=== PATIENT | male | born 1935 | race Caucasian/White ===

== ENCOUNTER 2018-03-07 06:55 | Emergency (ER) | payer MEDICARE, OTHER ==
[2018-03-07 07:33] LABS: ADD MAN DIFF? NO
[2018-03-07 07:34] LABS: WHITE BLOOD COUNT 7.4 10^3/ul (4.8-10.8)
[2018-03-07 07:34] LABS: BASOPHIL # 0.1 10^3/ul (0.0-0.1); BASOPHILS % 0.7 % (0.0-2.0); EOSINOPHILS # 0.2 10^3/ul (0.0-0.5); HEMATOCRIT 36.5 % (42.0-52.0); HEMOGLOBIN 12.5 g/dl (14.0-18.0); LYMPHOCYTES # 1.5 10^3/ul (0.8-2.9); LYMPHOCYTES % 20.2 % (15.0-51.0); MEAN CORPUSCULAR HEMOGLOBIN 30.8 pg (29.0-33.0); MEAN CORPUSCULAR HGB CONC 34.2 g/dl (32.0-37.0); MEAN CORPUSCULAR VOLUME 89.9 fl (82.0-101.0); MEAN PLATELET VOLUME 9.9 fl (7.4-10.4); MONOCYTE # 0.5 10^3/ul (0.3-0.9); MONOCYTES % 7.1 % (0.0-11.0); NEUTROPHIL # 5.1 10^3/ul (1.6-7.5); NEUTROPHILS % 68.6 % (39.0-77.0); PLATELET COUNT 147 10^3/UL (140-415); RED BLOOD COUNT 4.06 10^6/ul (4.70-6.10); RED CELL DISTRIBUTION WIDTH 13.9 % (11.5-14.5)
[2018-03-07] MEDS: KETOROLAC 30 MG INJ IV (07:39)
[2018-03-07 07:40] LABS: ALANINE AMINOTRANSFERASE 22 IU/L (13-69); ALBUMIN 4.1 g/dl (3.3-4.9); ALBUMIN/GLOBULIN RATIO 1.28; ALKALINE PHOSPHATASE 88 IU/L (42-121); ANION GAP 13 (8-16); ASPARTATE AMINO TRANSFERASE 22 IU/L (15-46); BILIRUBIN,INDIRECT 0.5 mg/dl (0-1.1); BILIRUBIN,TOTAL 0.5 mg/dl (0.2-1.3); BLOOD UREA NITROGEN 27 mg/dl (7-20); CALCIUM 8.8 mg/dl (8.4-10.2); CARBON DIOXIDE 18 mmol/L (21-31); CHLORIDE 114 mmol/L (97-110); CREATININE 1.68 mg/dl (0.61-1.24); GLUCOSE 97 mg/dl (70-220); LIPASE 219 U/L (23-300); POTASSIUM 3.9 mmol/L (3.5-5.1); SODIUM 141 mmol/L (135-144); TOTAL PROTEIN 7.3 g/dl (6.1-8.1)
[2018-03-07 09:14] LABS: URINE BLOOD (Dip) POC Trace-lysed (NEGATIVE); URINE GLUCOSE (Dip) POC Negative (NEGATIVE); URINE KETONES (Dip) POC Negative (NEGATIVE); URINE LEUKOCYTE EST (Dip) POC 1+ (NEGATIVE); URINE NITRITE (Dip) POC Positive (NEGATIVE); URINE TOTAL PROTEIN POC Negative (NEGATIVE)
[2018-03-07 09:14] LABS: URINE PH (Dip) POC 5.5 (5.0-8.5)
[2018-03-07 09:19] LABS: URINE BLOOD (Dip) POC Trace-lysed (NEGATIVE); URINE GLUCOSE (Dip) POC Negative (NEGATIVE); URINE KETONES (Dip) POC Negative (NEGATIVE); URINE LEUKOCYTE EST (Dip) POC 1+ (NEGATIVE); URINE NITRITE (Dip) POC Positive (NEGATIVE); URINE TOTAL PROTEIN POC Negative (NEGATIVE)
[2018-03-07 09:19] LABS: URINE PH (Dip) POC 5.5 (5.0-8.5)
== END 2018-03-07 10:23 | disposition home or self-care (01) ==
LOC: E/R 06:55
DX: N39.0 Urinary tract infection, site not specified (principal); G47.00 Insomnia, unspecified; I10 Essential (primary) hypertension
CPT/HCPCS: 36415; 74176; 80053; 81003; 83690; 85025; 96374; 99285-25

== ENCOUNTER 2018-04-08 09:44 | Emergency (ER) | payer MEDICARE, OTHER | END 2018-04-08 11:35 | disposition home or self-care (01) | LOC: FTE 09:44 | DX: K59.00 Constipation, unspecified (principal); I10 Essential (primary) hypertension | CPT/HCPCS: 74018; 99283-25 ==

== ENCOUNTER 2018-04-11 17:17 | Emergency (ER) | payer MEDICARE, OTHER ==
[2018-04-11 18:33] LABS: ADD UMIC YES; UR ASCORBIC ACID NEGATIVE (NEGATIVE); UR BILIRUBIN (Dip) NEGATIVE (NEGATIVE); UR BLOOD (Dip) 1+ mg/dL (NEGATIVE); UR CLARITY SLIGHTLY CLOUDY (CLEAR); UR COLOR YELLOW (YELLOW); UR GLUCOSE (Dip) NEGATIVE (NEGATIVE); UR KETONES (Dip) NEGATIVE (NEGATIVE); UR LEUKOCYTE ESTERASE (Dip) 3+ Leu/ul (NEGATIVE); UR MUCUS FEW /HPF (NONE SEEN); UR NITRITE (Dip) NEGATIVE (NEGATIVE); UR RBC 3 /HPF (0-5); UR SPECIFIC GRAVITY (Dip) 1.018 (1.003-1.030); UR TOTAL PROTEIN (Dip) 1+ mg/dl (NEGATIVE); UR UROBILINOGEN (Dip) NEGATIVE (NEGATIVE); UR WBC 181 /HPF (0-5)
[2018-04-11] MEDS: CEPHALEXIN 500 MG CAP PO (19:01)
== END 2018-04-11 19:10 | disposition home or self-care (01) ==
LOC: FTE 17:17
DX: N30.00 Acute cystitis without hematuria (principal); I10 Essential (primary) hypertension
CPT/HCPCS: 81001; 87086; 93005; 99284-25

== ENCOUNTER 2018-05-21 06:40 | Emergency (ER) | payer MEDICARE, OTHER ==
[2018-05-21 07:39] LABS: ADD UMIC YES; UR ASCORBIC ACID NEGATIVE (NEGATIVE); UR BACTERIA FEW /HPF (NONE SEEN); UR BILIRUBIN (Dip) NEGATIVE (NEGATIVE); UR BLOOD (Dip) 1+ mg/dL (NEGATIVE); UR CLARITY SLIGHTLY CLOUDY (CLEAR); UR COLOR YELLOW (YELLOW); UR GLUCOSE (Dip) NEGATIVE (NEGATIVE); UR KETONES (Dip) NEGATIVE (NEGATIVE); UR LEUKOCYTE ESTERASE (Dip) 2+ Leu/ul (NEGATIVE); UR MUCUS FEW /HPF (NONE SEEN); UR NITRITE (Dip) POSITIVE (NEGATIVE); UR RBC 5 /HPF (0-5); UR SPECIFIC GRAVITY (Dip) 1.013 (1.003-1.030); UR TOTAL PROTEIN (Dip) NEGATIVE (NEGATIVE); UR UROBILINOGEN (Dip) NEGATIVE (NEGATIVE); UR WBC 83 /HPF (0-5)
== END 2018-05-21 08:12 | disposition home or self-care (01) ==
LOC: E/R 06:40
DX: N39.0 Urinary tract infection, site not specified (principal); I10 Essential (primary) hypertension
CPT/HCPCS: 81001; 99283

== ENCOUNTER 2018-06-07 22:40 | Inpatient (IN) | payer MEDICARE, MEDICAID, OTHER ==
[2018-06-07 23:53] LABS: ADD MAN DIFF? NO
[2018-06-07 23:54] LABS: WHITE BLOOD COUNT 10.3 10^3/ul (4.8-10.8)
[2018-06-07 23:54] LABS: BASOPHIL # 0.1 10^3/ul (0.0-0.1); BASOPHILS % 0.5 % (0.0-2.0); EOSINOPHILS # 0.2 10^3/ul (0.0-0.5); HEMATOCRIT 36.9 % (42.0-52.0); HEMOGLOBIN 12.6 g/dl (14.0-18.0); LYMPHOCYTES # 1.3 10^3/ul (0.8-2.9); LYMPHOCYTES % 12.3 % (15.0-51.0); MEAN CORPUSCULAR HEMOGLOBIN 30.9 pg (29.0-33.0); MEAN CORPUSCULAR HGB CONC 34.1 g/dl (32.0-37.0); MEAN CORPUSCULAR VOLUME 90.4 fl (82.0-101.0); MEAN PLATELET VOLUME 10.1 fl (7.4-10.4); MONOCYTE # 1.1 10^3/ul (0.3-0.9); MONOCYTES % 10.8 % (0.0-11.0); NEUTROPHIL # 7.6 10^3/ul (1.6-7.5); NEUTROPHILS % 73.7 % (39.0-77.0); PLATELET COUNT 159 10^3/UL (140-415); RED BLOOD COUNT 4.08 10^6/ul (4.70-6.10); RED CELL DISTRIBUTION WIDTH 13.6 % (11.5-14.5)
[2018-06-08] LABS: URINE PH (Dip) POC 5.5 (5.0-8.5)
[2018-06-08] LABS: URINE BLOOD (Dip) POC 2+ (NEGATIVE); URINE GLUCOSE (Dip) POC Negative (NEGATIVE); URINE KETONES (Dip) POC Negative (NEGATIVE); URINE LEUKOCYTE EST (Dip) POC 2+ (NEGATIVE); URINE NITRITE (Dip) POC Positive (NEGATIVE); URINE TOTAL PROTEIN POC 2+ (NEGATIVE)
[2018-06-08 00:22] LABS: B-TYPE NATRIURETIC PEPTIDE 5250 PG/ML (0-450)
[2018-06-08 00:26] LABS: TROPONIN-I 0.053 ng/ml (0.000-0.120)
[2018-06-08] MEDS: PIPER-TAZO 2.25 GM (PMX) 50 ML IVPB ×4 (00:37→20:48)
[2018-06-08 01:22] LABS: ALANINE AMINOTRANSFERASE 12 IU/L (13-69); ALBUMIN 3.8 g/dl (3.3-4.9); ALBUMIN/GLOBULIN RATIO 1.18; ALKALINE PHOSPHATASE 86 IU/L (42-121); ANION GAP 14 (5-13); ASPARTATE AMINO TRANSFERASE 20 IU/L (15-46); BILIRUBIN,INDIRECT 0.6 mg/dl (0-1.1); BILIRUBIN,TOTAL 0.6 mg/dl (0.2-1.3); BLOOD UREA NITROGEN 37 mg/dl (7-20); CALCIUM 8.9 mg/dl (8.4-10.2); CARBON DIOXIDE 16 mmol/L (21-31); CHLORIDE 113 mmol/L (97-110); CREATININE 2.78 mg/dl (0.61-1.24); GLUCOSE 124 mg/dl (70-220); LIPASE 103 U/L (23-300); POTASSIUM 3.9 mmol/L (3.5-5.1); SODIUM 143 mmol/L (135-144)
[2018-06-08] MEDS ORDERED: NACL 0.9% 3 ML SYG IV (02:00)
[2018-06-08] MEDS ORDERED: DOCUSATE SODIUM 100 MG CAP PO (02:00)
[2018-06-08] MEDS ORDERED: ONDANSETRON 4 MG INJ IV (02:00)
[2018-06-08] MEDS ORDERED: BISACODYL (EC) 5 MG TAB PO (02:00)
[2018-06-08 06:15] LABS: ADD MAN DIFF? NO
[2018-06-08 06:18] LABS: WHITE BLOOD COUNT 9.1 10^3/ul (4.8-10.8)
[2018-06-08 06:19] LABS: BASOPHIL # 0.1 10^3/ul (0.0-0.1); BASOPHILS % 0.7 % (0.0-2.0); EOSINOPHILS # 0.3 10^3/ul (0.0-0.5); EOSINOPHILS % 2.8 % (0.0-7.0); HEMATOCRIT 39.2 % (42.0-52.0); HEMOGLOBIN 12.9 g/dl (14.0-18.0); LYMPHOCYTES # 1.3 10^3/ul (0.8-2.9); LYMPHOCYTES % 14.1 % (15.0-51.0); MEAN CORPUSCULAR HEMOGLOBIN 30.7 pg (29.0-33.0); MEAN CORPUSCULAR HGB CONC 32.9 g/dl (32.0-37.0); MEAN CORPUSCULAR VOLUME 93.3 fl (82.0-101.0); MEAN PLATELET VOLUME 10.4 fl (7.4-10.4); MONOCYTE # 0.9 10^3/ul (0.3-0.9); MONOCYTES % 9.6 % (0.0-11.0); NEUTROPHIL # 6.5 10^3/ul (1.6-7.5); NEUTROPHILS % 71.9 % (39.0-77.0); PLATELET COUNT 185 10^3/UL (140-415); RED CELL DISTRIBUTION WIDTH 13.8 % (11.5-14.5)
[2018-06-08] MEDS: TAMSULOSIN (SR) 0.4 MG CAP PO (06:28)
[2018-06-08 06:44] LABS: ETHANOL < 10.0 mg/dl (0-0)
[2018-06-08 06:49] LABS: ALANINE AMINOTRANSFERASE 16 IU/L (13-69); ALBUMIN 3.9 g/dl (3.3-4.9); ALKALINE PHOSPHATASE 83 IU/L (42-121); ANION GAP 12 (5-13); ASPARTATE AMINO TRANSFERASE 20 IU/L (15-46); BILIRUBIN,INDIRECT 0.6 mg/dl (0-1.1); BILIRUBIN,TOTAL 0.6 mg/dl (0.2-1.3); BLOOD UREA NITROGEN 37 mg/dl (7-20); CALCIUM 8.9 mg/dl (8.4-10.2); CARBON DIOXIDE 19 mmol/L (21-31); CHLORIDE 111 mmol/L (97-110); CHOL/HDL RATIO 3.3 RATIO; CHOLESTEROL 173 mg/dl (100-200); CREATININE 2.64 mg/dl (0.61-1.24); GLUCOSE 108 mg/dl (70-220); HDL CHOLESTEROL 52 mg/dl (31-75); LDL CHOLESTEROL,CALCULATED 96 mg/dl; POTASSIUM 3.8 mmol/L (3.5-5.1); SODIUM 142 mmol/L (135-144); TOTAL PROTEIN 6.9 g/dl (6.1-8.1); TRIGLYCERIDES 126 mg/dl (0-149)
[2018-06-08 06:50] LABS: HEMOGLOBIN A1C 4.9 % (0-5.9)
[2018-06-08 07:03] LABS: CK-MB 2.38 ng/ml (0.0-2.4); TROPONIN-I 0.051 ng/ml (0.000-0.120)
[2018-06-08 07:04] LABS: CREATINE KINASE 79 IU/L (23-200)
[2018-06-08] MEDS: ASPIRIN 81 MG TAB PO (08:10)
[2018-06-08 11:56] LABS: CREATINE KINASE 66 IU/L (23-200)
[2018-06-08] MEDS: METOPROLOL 25 MG TAB PO ×2 (12:09→20:49)
[2018-06-08 12:10] LABS: CK INDEX 3.1; CK-MB 2.07 ng/ml (0.0-2.4); TROPONIN-I 0.032 ng/ml (0.000-0.120)
[2018-06-08 14:35] LABS: ADD UMIC YES; UR ASCORBIC ACID NEGATIVE (NEGATIVE); UR BILIRUBIN (Dip) NEGATIVE (NEGATIVE); UR BLOOD (Dip) 1+ mg/dL (NEGATIVE); UR CLARITY CLEAR (CLEAR); UR COLOR YELLOW (YELLOW); UR GLUCOSE (Dip) NEGATIVE (NEGATIVE); UR KETONES (Dip) NEGATIVE (NEGATIVE); UR LEUKOCYTE ESTERASE (Dip) 2+ Leu/ul (NEGATIVE); UR MUCUS FEW /HPF (NONE SEEN); UR NITRITE (Dip) POSITIVE (NEGATIVE); UR RBC 1 /HPF (0-5); UR SPECIFIC GRAVITY (Dip) 1.017 (1.003-1.030); UR TOTAL PROTEIN (Dip) 1+ mg/dl (NEGATIVE); UR UROBILINOGEN (Dip) NEGATIVE (NEGATIVE); UR WBC 54 /HPF (0-5)
[2018-06-08 14:52] LABS: CREATININE,URINE RANDOM 117.75 mg/dl (20-370); PROTEIN/CREAT RATIO 0.56 RATIO
[2018-06-08 14:57] LABS: SODIUM,URINE RANDOM 44 mmol/L (30-90)
[2018-06-08 14:57] LABS: CREATININE,URINE RANDOM 118.29 mg/dl (20-370)
[2018-06-09] MEDS: ACETAMINOPHEN 325 MG TAB PO (00:28)
[2018-06-09] MEDS: PIPER-TAZO 2.25 GM (PMX) 50 ML IVPB ×3 (05:14→21:41)
[2018-06-09 06:06] LABS: ADD MAN DIFF? NO
[2018-06-09 06:12] LABS: WHITE BLOOD COUNT 7.6 10^3/ul (4.8-10.8)
[2018-06-09 06:12] LABS: BASOPHIL # 0.1 10^3/ul (0.0-0.1); BASOPHILS % 0.8 % (0.0-2.0); EOSINOPHILS # 0.3 10^3/ul (0.0-0.5); EOSINOPHILS % 3.4 % (0.0-7.0); HEMATOCRIT 33.4 % (42.0-52.0); HEMOGLOBIN 11.2 g/dl (14.0-18.0); LYMPHOCYTES # 1.1 10^3/ul (0.8-2.9); LYMPHOCYTES % 14.7 % (15.0-51.0); MEAN CORPUSCULAR HEMOGLOBIN 30.8 pg (29.0-33.0); MEAN CORPUSCULAR HGB CONC 33.5 g/dl (32.0-37.0); MEAN CORPUSCULAR VOLUME 91.8 fl (82.0-101.0); MONOCYTE # 0.7 10^3/ul (0.3-0.9); MONOCYTES % 8.6 % (0.0-11.0); NEUTROPHIL # 5.4 10^3/ul (1.6-7.5); NEUTROPHILS % 71.7 % (39.0-77.0); PLATELET COUNT 175 10^3/UL (140-415); RED BLOOD COUNT 3.64 10^6/ul (4.70-6.10); RED CELL DISTRIBUTION WIDTH 13.9 % (11.5-14.5)
[2018-06-09 07:02] LABS: ANION GAP 9 (5-13); BLOOD UREA NITROGEN 38 mg/dl (7-20); CALCIUM 8.4 mg/dl (8.4-10.2); CARBON DIOXIDE 19 mmol/L (21-31); CHLORIDE 113 mmol/L (97-110); CREATININE 2.39 mg/dl (0.61-1.24); GLUCOSE 99 mg/dl (70-220); MAGNESIUM 2.2 mg/dl (1.7-2.5); PHOSPHORUS 3.9 mg/dl (2.5-4.9); POTASSIUM 4.1 mmol/L (3.5-5.1); SODIUM 141 mmol/L (135-144)
[2018-06-09 07:47] LABS: PROSTATE SPECIFIC ANTIGEN 8.5 ng/ml (0.0-4.0)
[2018-06-09] MEDS: METOPROLOL 25 MG TAB PO ×2 (08:34→21:41)
[2018-06-09] MEDS: ASPIRIN 81 MG TAB PO (08:34)
[2018-06-09] MEDS: FINASTERIDE 5 MG TAB PO (08:34)
[2018-06-09] MEDS: TAMSULOSIN (SR) 0.4 MG CAP PO ×2 (12:06→21:41)
[2018-06-09 15:32] LABS: CREATININE, RANDOM URINE 120 mg/dL (20-320); MICROALBUMIN/CREATININE RATIO 50 (<30)
[2018-06-09 20:54] LABS: PSA, FREE 2.7 ng/mL
[2018-06-10 06:03] LABS: ADD MAN DIFF? NO
[2018-06-10 06:06] LABS: WHITE BLOOD COUNT 7.2 10^3/ul (4.8-10.8)
[2018-06-10 06:06] LABS: BASOPHIL # 0.1 10^3/ul (0.0-0.1); BASOPHILS % 0.8 % (0.0-2.0); EOSINOPHILS # 0.3 10^3/ul (0.0-0.5); EOSINOPHILS % 3.9 % (0.0-7.0); HEMATOCRIT 34.7 % (42.0-52.0); HEMOGLOBIN 11.5 g/dl (14.0-18.0); LYMPHOCYTES # 1.3 10^3/ul (0.8-2.9); LYMPHOCYTES % 18.5 % (15.0-51.0); MEAN CORPUSCULAR HGB CONC 33.1 g/dl (32.0-37.0); MEAN CORPUSCULAR VOLUME 93.5 fl (82.0-101.0); MEAN PLATELET VOLUME 10.5 fl (7.4-10.4); MONOCYTE # 0.5 10^3/ul (0.3-0.9); MONOCYTES % 7.1 % (0.0-11.0); NEUTROPHILS % 69.1 % (39.0-77.0); PLATELET COUNT 205 10^3/UL (140-415); RED BLOOD COUNT 3.71 10^6/ul (4.70-6.10); RED CELL DISTRIBUTION WIDTH 13.9 % (11.5-14.5)
[2018-06-10] MEDS: PIPER-TAZO 2.25 GM (PMX) 50 ML IVPB ×3 (06:14→22:08)
[2018-06-10 06:53] LABS: ANION GAP 11 (5-13); BLOOD UREA NITROGEN 39 mg/dl (7-20); CALCIUM 8.7 mg/dl (8.4-10.2); CARBON DIOXIDE 18 mmol/L (21-31); CHLORIDE 115 mmol/L (97-110); CREATININE 2.38 mg/dl (0.61-1.24); GLUCOSE 98 mg/dl (70-220); MAGNESIUM 2.2 mg/dl (1.7-2.5); POTASSIUM 4.5 mmol/L (3.5-5.1); SODIUM 144 mmol/L (135-144)
[2018-06-10] MEDS: ASPIRIN 81 MG TAB PO (08:36)
[2018-06-10] MEDS: FINASTERIDE 5 MG TAB PO (08:37)
[2018-06-10] MEDS: METOPROLOL 25 MG TAB PO ×2 (08:37→20:39)
[2018-06-10] MEDS: TAMSULOSIN (SR) 0.4 MG CAP PO ×2 (08:37→20:41)
[2018-06-11 00:50] LABS: ADD MAN DIFF? NO
[2018-06-11 00:52] LABS: BASOPHILS % 0.6 % (0.0-2.0); EOSINOPHILS # 0.2 10^3/ul (0.0-0.5); HEMATOCRIT 32.4 % (42.0-52.0); HEMOGLOBIN 10.7 g/dl (14.0-18.0); LYMPHOCYTES # 1.1 10^3/ul (0.8-2.9); LYMPHOCYTES % 15.5 % (15.0-51.0); MEAN CORPUSCULAR HEMOGLOBIN 30.7 pg (29.0-33.0); MEAN CORPUSCULAR VOLUME 92.8 fl (82.0-101.0); MEAN PLATELET VOLUME 10.1 fl (7.4-10.4); MONOCYTE # 0.5 10^3/ul (0.3-0.9); MONOCYTES % 7.4 % (0.0-11.0); NEUTROPHIL # 5.1 10^3/ul (1.6-7.5); NEUTROPHILS % 72.9 % (39.0-77.0); PLATELET COUNT 206 10^3/UL (140-415); RED BLOOD COUNT 3.49 10^6/ul (4.70-6.10); RED CELL DISTRIBUTION WIDTH 13.9 % (11.5-14.5)
[2018-06-11] MEDS: ZOLPIDEM 5 MG TAB PO (04:45)
[2018-06-11 06:06] LABS: ADD MAN DIFF? NO
[2018-06-11 06:08] LABS: WHITE BLOOD COUNT 7.4 10^3/ul (4.8-10.8)
[2018-06-11 06:08] LABS: BASOPHIL # 0.1 10^3/ul (0.0-0.1); BASOPHILS % 0.7 % (0.0-2.0); EOSINOPHILS # 0.3 10^3/ul (0.0-0.5); EOSINOPHILS % 3.4 % (0.0-7.0); HEMATOCRIT 31.6 % (42.0-52.0); HEMOGLOBIN 10.7 g/dl (14.0-18.0); LYMPHOCYTES # 1.1 10^3/ul (0.8-2.9); LYMPHOCYTES % 14.7 % (15.0-51.0); MEAN CORPUSCULAR HEMOGLOBIN 31.2 pg (29.0-33.0); MEAN CORPUSCULAR HGB CONC 33.9 g/dl (32.0-37.0); MEAN CORPUSCULAR VOLUME 92.1 fl (82.0-101.0); MEAN PLATELET VOLUME 10.1 fl (7.4-10.4); MONOCYTE # 0.6 10^3/ul (0.3-0.9); MONOCYTES % 8.2 % (0.0-11.0); NEUTROPHIL # 5.4 10^3/ul (1.6-7.5); NEUTROPHILS % 72.6 % (39.0-77.0); PLATELET COUNT 193 10^3/UL (140-415); RED BLOOD COUNT 3.43 10^6/ul (4.70-6.10); RED CELL DISTRIBUTION WIDTH 13.6 % (11.5-14.5)
[2018-06-11] MEDS: PIPER-TAZO 2.25 GM (PMX) 50 ML IVPB (06:11)
[2018-06-11 06:21] LABS: ANION GAP 7 (5-13); BLOOD UREA NITROGEN 38 mg/dl (7-20); CALCIUM 8.3 mg/dl (8.4-10.2); CARBON DIOXIDE 18 mmol/L (21-31); CHLORIDE 118 mmol/L (97-110); CREATININE 1.97 mg/dl (0.61-1.24); GLUCOSE 87 mg/dl (70-220); POTASSIUM 4.2 mmol/L (3.5-5.1); SODIUM 143 mmol/L (135-144)
[2018-06-11 06:32] LABS: PHOSPHORUS 3.6 mg/dl (2.5-4.9)
[2018-06-11] MEDS: TAMSULOSIN (SR) 0.4 MG CAP PO (08:29)
[2018-06-11] MEDS: ASPIRIN 81 MG TAB PO (08:29)
[2018-06-11] MEDS: METOPROLOL 25 MG TAB PO (08:29)
[2018-06-11] MEDS: FINASTERIDE 5 MG TAB PO (08:29)
[2018-06-11] MEDS: AMLODIPINE 5 MG TAB PO (10:50)
== END 2018-06-11 10:53 | disposition home or self-care (01) | DRG 309 ==
LOC: 6WM 06-11 05:16 → E/R 22:40 → 6WM 06-08 01:31
DX: I48.0 Paroxysmal atrial fibrillation (principal); N17.9 Acute kidney failure, unspecified; N39.0 Urinary tract infection, site not specified; N18.4 Chronic kidney disease, stage 4 (severe); Z87.440 Personal history of urinary (tract) infections; N40.0 Benign prostatic hyperplasia without lower urinary tract symptoms; I12.9 Hypertensive chronic kidney disease with stage 1 through stage 4 chronic kidney disease, or unspecified chronic kidney disease; R79.89 Other specified abnormal findings of blood chemistry; E83.89 Other disorders of mineral metabolism; F10.10 Alcohol abuse, uncomplicated; D64.9 Anemia, unspecified; I71.4 Abdominal aortic aneurysm, without rupture; Z87.891 Personal history of nicotine dependence; R35.1 Nocturia; R31.9 Hematuria, unspecified
CPT/HCPCS: 36415; 71045; 74176; 76775; 80048; 80053; 80061; 80307; 81001; 81003; 82043; 82550; 82553; 82570; 83036; 83690; 83735; 83880; 84100; 84153; 84154; 84155; 84300; 84443; 84484; 85025; 87086; 93005; 93306; 96374; 99285-25

== ENCOUNTER 2018-07-14 15:13 | Emergency (ER) | payer MEDICARE, MEDICAID ==
[2018-07-14 17:24] LABS: ADD MAN DIFF? NO
[2018-07-14 17:27] LABS: BASOPHILS % 0.5 % (0.0-2.0); EOSINOPHILS # 0.2 10^3/ul (0.0-0.5); EOSINOPHILS % 2.4 % (0.0-7.0); HEMOGLOBIN 11.9 g/dl (14.0-18.0); LYMPHOCYTES # 0.9 10^3/ul (0.8-2.9); LYMPHOCYTES % 11.4 % (15.0-51.0); MEAN CORPUSCULAR HEMOGLOBIN 30.5 pg (29.0-33.0); MEAN CORPUSCULAR HGB CONC 33.1 g/dl (32.0-37.0); MEAN CORPUSCULAR VOLUME 92.3 fl (82.0-101.0); MEAN PLATELET VOLUME 9.7 fl (7.4-10.4); MONOCYTE # 0.7 10^3/ul (0.3-0.9); MONOCYTES % 7.9 % (0.0-11.0); NEUTROPHIL # 6.4 10^3/ul (1.6-7.5); NEUTROPHILS % 77.3 % (39.0-77.0); PLATELET COUNT 179 10^3/UL (140-415); RED CELL DISTRIBUTION WIDTH 13.8 % (11.5-14.5)
[2018-07-14 17:27] LABS: WHITE BLOOD COUNT 8.3 10^3/ul (4.8-10.8)
[2018-07-14 17:59] LABS: ANION GAP 10 (5-13); BLOOD UREA NITROGEN 39 mg/dl (7-20); CALCIUM 8.9 mg/dl (8.4-10.2); CARBON DIOXIDE 20 mmol/L (21-31); CHLORIDE 114 mmol/L (97-110); CREATININE 1.89 mg/dl (0.61-1.24); GLUCOSE 105 mg/dl (70-220); POTASSIUM 4.5 mmol/L (3.5-5.1); SODIUM 144 mmol/L (135-144)
[2018-07-14 18:11] LABS: TROPONIN-I 0.015 ng/ml (0.000-0.120)
[2018-07-14 18:21] LABS: ADD UMIC YES; UR ASCORBIC ACID NEGATIVE (NEGATIVE); UR BACTERIA FEW /HPF (NONE SEEN); UR BILIRUBIN (Dip) NEGATIVE (NEGATIVE); UR BLOOD (Dip) 1+ mg/dL (NEGATIVE); UR CLARITY SLIGHTLY CLOUDY (CLEAR); UR COLOR YELLOW (YELLOW); UR GLUCOSE (Dip) NEGATIVE (NEGATIVE); UR KETONES (Dip) NEGATIVE (NEGATIVE); UR LEUKOCYTE ESTERASE (Dip) 3+ Leu/ul (NEGATIVE); UR NITRITE (Dip) POSITIVE (NEGATIVE); UR RBC 3 /HPF (0-5); UR SPECIFIC GRAVITY (Dip) 1.014 (1.003-1.030); UR TOTAL PROTEIN (Dip) 1+ mg/dl (NEGATIVE); UR UROBILINOGEN (Dip) NEGATIVE (NEGATIVE); UR WBC 165 /HPF (0-5)
[2018-07-14] MEDS: CEFTRIAXONE 1 GM/50 ML (PMX) 50 ML IVPB (19:37)
== END 2018-07-14 21:47 | disposition home or self-care (01) ==
LOC: E/R 15:13
DX: M54.5 Low back pain (principal); N39.0 Urinary tract infection, site not specified; N12 Tubulo-interstitial nephritis, not specified as acute or chronic; N40.1 Benign prostatic hyperplasia with lower urinary tract symptoms; R33.8 Other retention of urine; N32.0 Bladder-neck obstruction; I10 Essential (primary) hypertension; Z79.82 Long term (current) use of aspirin
CPT/HCPCS: 72100; 74176; 80048; 81001; 84484; 85025; 87086; 93005; 96374; 99285-25

== ENCOUNTER 2018-07-22 14:21 | Emergency (ER) | payer SELFPAY, MEDICAID, MEDICARE | END 2018-07-22 14:29 | disposition left against medical advice (07) | LOC: E/R 14:21 | DX: Z53.21 Procedure and treatment not carried out due to patient leaving prior to being seen by health care provider (principal) ==

== ENCOUNTER 2018-07-26 05:20 | Emergency (ER) | payer MEDICARE, OTHER ==
[2018-07-26 06:26] LABS: URINE PH (Dip) POC 5.5 (5.0-8.5)
[2018-07-26 06:26] LABS: URINE BLOOD (Dip) POC Trace-intact (NEGATIVE); URINE GLUCOSE (Dip) POC Negative (NEGATIVE); URINE KETONES (Dip) POC Negative (NEGATIVE); URINE LEUKOCYTE EST (Dip) POC 2+ (NEGATIVE); URINE NITRITE (Dip) POC Positive (NEGATIVE); URINE TOTAL PROTEIN POC 1+ (NEGATIVE)
== END 2018-07-26 07:01 | disposition home or self-care (01) ==
LOC: E/R 07:01
DX: N40.0 Benign prostatic hyperplasia without lower urinary tract symptoms (principal); I10 Essential (primary) hypertension; M79.671 Pain in right foot
CPT/HCPCS: 81003; 99283

== ENCOUNTER 2018-09-28 16:34 | Emergency (ER) | payer MEDICARE, MEDICAID, OTHER | END 2018-09-28 20:42 | disposition home or self-care (01) | LOC: E/R 20:42 | DX: G62.9 Polyneuropathy, unspecified (principal); I10 Essential (primary) hypertension; Z87.891 Personal history of nicotine dependence | CPT/HCPCS: 99282 ==

== ENCOUNTER 2018-10-16 10:25 | Inpatient (IN) | payer OTHER, MEDICAID, MEDICARE ==
[2018-10-16] MEDS ORDERED: DILTIAZEM 25 MG INJ (11:33)
[2018-10-16 11:53] LABS: ADD MAN DIFF? NO
[2018-10-16] MEDS: DILTIAZEM 25 MG INJ IV ×4 (12:01→18:16)
[2018-10-16 12:08] LABS: BASOPHIL # 0.1 10^3/ul (0.0-0.1); BASOPHILS % 0.8 % (0.0-2.0); EOSINOPHILS # 0.1 10^3/ul (0.0-0.5); EOSINOPHILS % 0.8 % (0.0-7.0); HEMATOCRIT 41.6 % (42.0-52.0); HEMOGLOBIN 13.6 g/dl (14.0-18.0); LYMPHOCYTES # 0.7 10^3/ul (0.8-2.9); LYMPHOCYTES % 9.6 % (15.0-51.0); MEAN CORPUSCULAR HGB CONC 32.7 g/dl (32.0-37.0); MEAN CORPUSCULAR VOLUME 91.6 fl (82.0-101.0); MEAN PLATELET VOLUME 10.8 fl (7.4-10.4); MONOCYTE # 0.9 10^3/ul (0.3-0.9); NEUTROPHIL # 5.6 10^3/ul (1.6-7.5); NEUTROPHILS % 76.1 % (39.0-77.0); PLATELET COUNT 122 10^3/UL (140-415); RED BLOOD COUNT 4.54 10^6/ul (4.70-6.10); RED CELL DISTRIBUTION WIDTH 14.5 % (11.5-14.5)
[2018-10-16 12:08] LABS: WHITE BLOOD COUNT 7.4 10^3/ul (4.8-10.8)
[2018-10-16 12:21] LABS: INR 0.95; PROTIME 12.8 Sec (11.9-14.9)
[2018-10-16 12:22] LABS: PARTIAL THROMBOPLASTIN TIME 34.1 Sec (23.0-35.0)
[2018-10-16 12:25] LABS: ANION GAP 12 (5-13); BLOOD UREA NITROGEN 31 mg/dl (7-20); CALCIUM 9.3 mg/dl (8.4-10.2); CARBON DIOXIDE 18 mmol/L (21-31); CHLORIDE 112 mmol/L (97-110); CREATININE 2.83 mg/dl (0.61-1.24); GLUCOSE 116 mg/dl (70-220); POTASSIUM 4.3 mmol/L (3.5-5.1); SODIUM 142 mmol/L (135-144)
[2018-10-16 12:33] LABS: B-TYPE NATRIURETIC PEPTIDE 600 PG/ML (0-450)
[2018-10-16 12:38] LABS: TROPONIN-I < 0.012 ng/ml (0.000-0.120)
[2018-10-16 13:16] LABS: URINE BLOOD (Dip) POC 3+ (NEGATIVE); URINE GLUCOSE (Dip) POC Negative (NEGATIVE); URINE KETONES (Dip) POC Trace (NEGATIVE); URINE LEUKOCYTE EST (Dip) POC 3+ (NEGATIVE); URINE NITRITE (Dip) POC Positive (NEGATIVE); URINE TOTAL PROTEIN POC 2+ (NEGATIVE)
[2018-10-16] MEDS: SOD CHLORIDE 0.9% 500 ML IV (13:20)
[2018-10-16] MEDS ORDERED: ACETAMINOPHEN 325 MG TAB PO (14:00)
[2018-10-16] MEDS ORDERED: ONDANSETRON 4 MG INJ IV (14:00)
[2018-10-16] MEDS ORDERED: NACL 0.9% 3 ML SYG IV (14:00)
[2018-10-16] MEDS: CEFTRIAXONE 1 GM/50 ML (PMX) 50 ML IVPB (14:14)
[2018-10-16] MEDS: SOD CHLORIDE 0.9% 1,000 ML IV (17:08)
[2018-10-16] MEDS ORDERED: DILTIAZEM 25 MG INJ IV (17:30)
[2018-10-16 17:58] LABS: CREATINE KINASE 60 IU/L (23-200)
[2018-10-16 18:10] LABS: CK INDEX 1.8; CK-MB 1.06 ng/ml (0.0-2.4); TROPONIN-I 0.025 ng/ml (0.000-0.120)
[2018-10-16 18:17] LABS: ADD UMIC YES; UR ASCORBIC ACID 20 mg/dL (NEGATIVE); UR BACTERIA FEW /HPF (NONE SEEN); UR BILIRUBIN (Dip) NEGATIVE (NEGATIVE); UR BLOOD (Dip) 3+ mg/dL (NEGATIVE); UR CLARITY CLOUDY (CLEAR); UR COLOR AMBER (YELLOW); UR GLUCOSE (Dip) NEGATIVE (NEGATIVE); UR KETONES (Dip) NEGATIVE (NEGATIVE); UR LEUKOCYTE ESTERASE (Dip) TRACE Leu/ul (NEGATIVE); UR MUCUS FEW /HPF (NONE SEEN); UR NITRITE (Dip) POSITIVE (NEGATIVE); UR RBC > 182 /HPF (0-5); UR SPECIFIC GRAVITY (Dip) 1.013 (1.003-1.030); UR TOTAL PROTEIN (Dip) 2+ mg/dl (NEGATIVE); UR UROBILINOGEN (Dip) NEGATIVE (NEGATIVE); UR WBC 182 /HPF (0-5)
[2018-10-16] MEDS: DIGOXIN 500 MCG INJ IV (18:17)
[2018-10-16] MEDS: METOPROLOL 25 MG TAB PO ×2 (18:18→21:00)
[2018-10-16] MEDS: TAMSULOSIN (SR) 0.4 MG CAP PO (20:13)
[2018-10-16 21:04] LABS: SODIUM,URINE RANDOM 91 mmol/L (30-90)
[2018-10-16 23:51] LABS: CREATINE KINASE 65 IU/L (23-200)
[2018-10-17 00:04] LABS: CK INDEX 2.1; CK-MB 1.38 ng/ml (0.0-2.4); TROPONIN-I 0.029 ng/ml (0.000-0.120)
[2018-10-17 06:35] LABS: ADD MAN DIFF? NO
[2018-10-17 06:40] LABS: BASOPHIL # 0.1 10^3/ul (0.0-0.1); BASOPHILS % 0.8 % (0.0-2.0); EOSINOPHILS # 0.1 10^3/ul (0.0-0.5); EOSINOPHILS % 1.2 % (0.0-7.0); HEMATOCRIT 36.8 % (42.0-52.0); HEMOGLOBIN 12.1 g/dl (14.0-18.0); LYMPHOCYTES # 0.8 10^3/ul (0.8-2.9); LYMPHOCYTES % 13.4 % (15.0-51.0); MEAN CORPUSCULAR HEMOGLOBIN 30.1 pg (29.0-33.0); MEAN CORPUSCULAR HGB CONC 32.9 g/dl (32.0-37.0); MEAN CORPUSCULAR VOLUME 91.5 fl (82.0-101.0); MEAN PLATELET VOLUME 10.6 fl (7.4-10.4); MONOCYTE # 0.5 10^3/ul (0.3-0.9); MONOCYTES % 8.6 % (0.0-11.0); NEUTROPHIL # 4.6 10^3/ul (1.6-7.5); NEUTROPHILS % 75.7 % (39.0-77.0); PLATELET COUNT 123 10^3/UL (140-415); RED BLOOD COUNT 4.02 10^6/ul (4.70-6.10); RED CELL DISTRIBUTION WIDTH 14.4 % (11.5-14.5)
[2018-10-17 07:08] LABS: PHOSPHORUS 3.2 mg/dl (2.5-4.9)
[2018-10-17 07:20] LABS: ALANINE AMINOTRANSFERASE 13 IU/L (13-69); ALBUMIN 3.5 g/dl (3.3-4.9); ALBUMIN/GLOBULIN RATIO 1.16; ALKALINE PHOSPHATASE 62 IU/L (42-121); ANION GAP 10 (5-13); ASPARTATE AMINO TRANSFERASE 21 IU/L (15-46); BILIRUBIN,INDIRECT 0.3 mg/dl (0-1.1); BILIRUBIN,TOTAL 0.3 mg/dl (0.2-1.3); BLOOD UREA NITROGEN 30 mg/dl (7-20); CALCIUM 8.4 mg/dl (8.4-10.2); CARBON DIOXIDE 20 mmol/L (21-31); CHLORIDE 112 mmol/L (97-110); CREATININE 1.94 mg/dl (0.61-1.24); GLUCOSE 91 mg/dl (70-220); MAGNESIUM 1.8 mg/dl (1.7-2.5); POTASSIUM 3.9 mmol/L (3.5-5.1); SODIUM 142 mmol/L (135-144); TOTAL PROTEIN 6.5 g/dl (6.1-8.1)
[2018-10-17] MEDS: METOPROLOL 25 MG TAB PO ×2 (08:23→13:20)
[2018-10-17 08:50] LABS: HEMOGLOBIN A1C 5.1 % (0-5.9)
[2018-10-17 11:25] LABS: ADD UMIC YES; UR ASCORBIC ACID NEGATIVE (NEGATIVE); UR BACTERIA FEW /HPF (NONE SEEN); UR BILIRUBIN (Dip) NEGATIVE (NEGATIVE); UR BLOOD (Dip) 3+ mg/dL (NEGATIVE); UR CLARITY CLOUDY (CLEAR); UR COLOR RED (YELLOW); UR GLUCOSE (Dip) NEGATIVE (NEGATIVE); UR KETONES (Dip) NEGATIVE (NEGATIVE); UR LEUKOCYTE ESTERASE (Dip) 2+ Leu/ul (NEGATIVE); UR MUCUS FEW /HPF (NONE SEEN); UR NITRITE (Dip) NEGATIVE (NEGATIVE); UR RBC > 182 /HPF (0-5); UR SPECIFIC GRAVITY (Dip) 1.014 (1.003-1.030); UR TOTAL PROTEIN (Dip) 2+ mg/dl (NEGATIVE); UR UROBILINOGEN (Dip) NEGATIVE (NEGATIVE); UR WBC > 182 /HPF (0-5)
[2018-10-17] MEDS: CEFTRIAXONE 1 GM/50 ML (PMX) 50 ML IVPB (15:57)
[2018-10-17] MEDS: DILTIAZEM (CD) 120 MG CAP PO (16:00)
[2018-10-17] MEDS: SOD CHLORIDE 0.9% 1,000 ML IV ×2 (16:30→20:49)
[2018-10-17] MEDS: TAMSULOSIN (SR) 0.4 MG CAP PO (20:34)
[2018-10-17] MEDS: HEPARIN 5,000 UNIT/1 ML VIAL SC (20:36)
[2018-10-17] MEDS: hydrALAzine 20 MG INJ IV (23:53)
[2018-10-18] MEDS: hydrALAzine 20 MG INJ IV (05:31)
[2018-10-18 07:25] LABS: ADD MAN DIFF? NO
[2018-10-18 07:32] LABS: ABNORMAL IP MESSAGE 1; BASOPHILS % 0.2 % (0.0-2.0); HEMATOCRIT 34.1 % (42.0-52.0); HEMOGLOBIN 11.5 g/dl (14.0-18.0); LYMPHOCYTES # 0.5 10^3/ul (0.8-2.9); LYMPHOCYTES % 9.3 % (15.0-51.0); MEAN CORPUSCULAR HEMOGLOBIN 30.5 pg (29.0-33.0); MEAN CORPUSCULAR HGB CONC 33.7 g/dl (32.0-37.0); MEAN CORPUSCULAR VOLUME 90.5 fl (82.0-101.0); MEAN PLATELET VOLUME 10.5 fl (7.4-10.4); MONOCYTE # 0.6 10^3/ul (0.3-0.9); MONOCYTES % 10.4 % (0.0-11.0); NEUTROPHIL # 4.4 10^3/ul (1.6-7.5); NEUTROPHILS % 79.7 % (39.0-77.0); PLATELET COUNT 114 10^3/UL (140-415); POSITIVE DIFF @See below; RED BLOOD COUNT 3.77 10^6/ul (4.70-6.10)
[2018-10-18 07:32] LABS: WHITE BLOOD COUNT 5.5 10^3/ul (4.8-10.8)
[2018-10-18 07:59] LABS: ANION GAP 13 (5-13); BLOOD UREA NITROGEN 26 mg/dl (7-20); CALCIUM 8.6 mg/dl (8.4-10.2); CARBON DIOXIDE 17 mmol/L (21-31); CHLORIDE 111 mmol/L (97-110); CREATININE 1.89 mg/dl (0.61-1.24); GLUCOSE 100 mg/dl (70-220); MAGNESIUM 1.6 mg/dl (1.7-2.5); POTASSIUM 3.6 mmol/L (3.5-5.1); SODIUM 141 mmol/L (135-144)
[2018-10-18] MEDS ORDERED: MAGNESIUM SULFATE 4 GM/100 ML 100 ML IVPB (08:30)
[2018-10-18] MEDS: MAG SULFATE 2GM IN 50 ML IVPB ×2 (10:08→12:17)
[2018-10-18] MEDS: APIXABAN 5 MG TABLET PO ×2 (10:09→21:16)
[2018-10-18] MEDS: DILTIAZEM (CD) 120 MG CAP PO ×2 (10:10→21:20)
[2018-10-18] MEDS: HEPARIN 5,000 UNIT/1 ML VIAL SC ×2 (10:21→21:30)
[2018-10-18] MEDS: DRONEDARONE HYDROCHLORIDE 400 MG TAB PO ×2 (12:10→17:48)
[2018-10-18] MEDS: CEFTRIAXONE 1 GM/50 ML (PMX) 50 ML IVPB (14:46)
[2018-10-18] MEDS: PIPER-TAZO 2.25 GM (PMX) 50 ML IVPB ×2 (16:04→21:22)
[2018-10-18 16:46] LABS: CREATININE, RANDOM URINE 95 mg/dL (20-320); MICROALBUMIN 36.4 mg/dL; MICROALBUMIN/CREATININE RATIO 383 (<30)
[2018-10-18] MEDS: TAMSULOSIN (SR) 0.4 MG CAP PO (21:20)
[2018-10-19] MEDS: PIPER-TAZO 2.25 GM (PMX) 50 ML IVPB ×2 (05:37→13:48)
[2018-10-19] MEDS: SOD CHLORIDE 0.9% 1,000 ML IV (05:40)
[2018-10-19] MEDS: APIXABAN 5 MG TABLET PO ×2 (08:43→21:19)
[2018-10-19] MEDS: DILTIAZEM (CD) 120 MG CAP PO ×2 (08:43→21:20)
[2018-10-19] MEDS: DRONEDARONE HYDROCHLORIDE 400 MG TAB PO ×2 (08:44→18:03)
[2018-10-19 08:49] LABS: ADD MAN DIFF? NO
[2018-10-19 09:04] LABS: BASOPHILS % 0.6 % (0.0-2.0); EOSINOPHILS # 0.1 10^3/ul (0.0-0.5); EOSINOPHILS % 1.6 % (0.0-7.0); HEMATOCRIT 31.4 % (42.0-52.0); HEMOGLOBIN 10.5 g/dl (14.0-18.0); LYMPHOCYTES # 0.9 10^3/ul (0.8-2.9); LYMPHOCYTES % 17.3 % (15.0-51.0); MEAN CORPUSCULAR HEMOGLOBIN 30.3 pg (29.0-33.0); MEAN CORPUSCULAR HGB CONC 33.4 g/dl (32.0-37.0); MEAN CORPUSCULAR VOLUME 90.8 fl (82.0-101.0); MEAN PLATELET VOLUME 10.9 fl (7.4-10.4); MONOCYTE # 0.5 10^3/ul (0.3-0.9); MONOCYTES % 9.6 % (0.0-11.0); NEUTROPHIL # 3.5 10^3/ul (1.6-7.5); NEUTROPHILS % 70.3 % (39.0-77.0); PLATELET COUNT 111 10^3/UL (140-415); RED BLOOD COUNT 3.46 10^6/ul (4.70-6.10); RED CELL DISTRIBUTION WIDTH 14.6 % (11.5-14.5)
[2018-10-19 09:04] LABS: WHITE BLOOD COUNT 4.9 10^3/ul (4.8-10.8)
[2018-10-19] MEDS: HEPARIN 5,000 UNIT/1 ML VIAL SC ×2 (09:41→21:35)
[2018-10-19 09:43] LABS: B-TYPE NATRIURETIC PEPTIDE 723 PG/ML (0-450)
[2018-10-19 09:47] LABS: ALANINE AMINOTRANSFERASE 16 IU/L (13-69); ALBUMIN 3.2 g/dl (3.3-4.9); ALBUMIN/GLOBULIN RATIO 1.14; ALKALINE PHOSPHATASE 59 IU/L (42-121); ANION GAP 8 (5-13); ASPARTATE AMINO TRANSFERASE 17 IU/L (15-46); BILIRUBIN,INDIRECT 0.4 mg/dl (0-1.1); BILIRUBIN,TOTAL 0.4 mg/dl (0.2-1.3); BLOOD UREA NITROGEN 26 mg/dl (7-20); CALCIUM 8.2 mg/dl (8.4-10.2); CARBON DIOXIDE 16 mmol/L (21-31); CHLORIDE 117 mmol/L (97-110); CHOL/HDL RATIO 3.3 RATIO; CHOLESTEROL 129 mg/dl (100-200); CREATININE 2.04 mg/dl (0.61-1.24); GLUCOSE 89 mg/dl (70-220); HDL CHOLESTEROL 38 mg/dl (31-75); LDL CHOLESTEROL,CALCULATED 74 mg/dl; MAGNESIUM 2.5 mg/dl (1.7-2.5); POTASSIUM 3.6 mmol/L (3.5-5.1); SODIUM 141 mmol/L (135-144); TRIGLYCERIDES 83 mg/dl (0-149)
[2018-10-19] MEDS: LIDOCAINE 1% (MPF) 5 ML VIAL SC (11:00)
[2018-10-19 14:29] LABS: FREE T4 (FREE THYROXINE) 1.54 ng/dl (0.85-1.93)
[2018-10-19] MEDS: CEFEPIME 1GM/50 ML (PMX) 50 ML IVPB (15:52)
[2018-10-19] MEDS: TAMSULOSIN (SR) 0.4 MG CAP PO (21:20)
[2018-10-20 08:14] LABS: ANION GAP 9 (5-13); BLOOD UREA NITROGEN 24 mg/dl (7-20); CALCIUM 8.7 mg/dl (8.4-10.2); CARBON DIOXIDE 16 mmol/L (21-31); CHLORIDE 118 mmol/L (97-110); CREATININE 2.11 mg/dl (0.61-1.24); GLUCOSE 91 mg/dl (70-220); POTASSIUM 3.8 mmol/L (3.5-5.1); SODIUM 143 mmol/L (135-144)
[2018-10-20] MEDS: APIXABAN 5 MG TABLET PO (08:24)
[2018-10-20] MEDS: DRONEDARONE HYDROCHLORIDE 400 MG TAB PO ×2 (08:25→16:49)
[2018-10-20] MEDS: DILTIAZEM (CD) 120 MG CAP PO (08:26)
[2018-10-20] MEDS: HEPARIN 5,000 UNIT/1 ML VIAL SC (08:34)
[2018-10-20] MEDS: LIDOCAINE 1% (MPF) 5 ML VIAL SC (11:00)
[2018-10-20] MEDS: CEFEPIME 1GM/50 ML (PMX) 50 ML IVPB (15:50)
== END 2018-10-20 17:15 | disposition home health service (06) | DRG 309 ==
LOC: E/R 10:25 → TEL 10-17 23:26
PROC: 02HV33Z Insertion of Infusion Device into Superior Vena Cava, Percutaneous Approach (ICD-10-PCS; principal; 2018-10-20)
DX: I48.0 Paroxysmal atrial fibrillation (principal); N39.0 Urinary tract infection, site not specified; E87.2 Acidosis; N17.9 Acute kidney failure, unspecified; I12.9 Hypertensive chronic kidney disease with stage 1 through stage 4 chronic kidney disease, or unspecified chronic kidney disease; N18.9 Chronic kidney disease, unspecified; D64.9 Anemia, unspecified; D69.6 Thrombocytopenia, unspecified; E86.0 Dehydration; N40.0 Benign prostatic hyperplasia without lower urinary tract symptoms; Z87.891 Personal history of nicotine dependence; R05 Cough; Z79.02 Long term (current) use of antithrombotics/antiplatelets; E83.42 Hypomagnesemia; B96.5 Pseudomonas (aeruginosa) (mallei) (pseudomallei) as the cause of diseases classified elsewhere
CPT/HCPCS: 36415; 36569; 71045; 74176; 76775; 76937; 80048; 80053; 80061; 81001; 81003; 82043; 82550; 82553; 83036; 83735; 83880; 84100; 84155; 84300; 84439; 84443; 84484; 85025; 85610; 85730; 87086; 93005; 93306; 96374; 99291-25

== ENCOUNTER 2018-11-02 15:50 | Emergency (ER) | payer OTHER | END 2018-11-02 22:13 | disposition home or self-care (01) | LOC: E/R 15:50 | DX: Z45.2 Encounter for adjustment and management of vascular access device (principal); I12.9 Hypertensive chronic kidney disease with stage 1 through stage 4 chronic kidney disease, or unspecified chronic kidney disease; N18.9 Chronic kidney disease, unspecified; Z87.891 Personal history of nicotine dependence | CPT/HCPCS: 99282 ==

== ENCOUNTER 2018-11-27 03:04 | Emergency (ER) | payer OTHER ==
[2018-11-27 05:07] LABS: ADD MAN DIFF? NO
[2018-11-27] MEDS: SOD CHLORIDE 0.9% 500 ML IV (05:07)
[2018-11-27] MEDS: morphine 4 MG/ML VIAL IV (05:08)
[2018-11-27] MEDS: ONDANSETRON 4 MG INJ IV (05:08)
[2018-11-27 05:10] LABS: BASOPHIL # 0.1 10^3/ul (0.0-0.1); BASOPHILS % 0.9 % (0.0-2.0); EOSINOPHILS # 0.3 10^3/ul (0.0-0.5); EOSINOPHILS % 3.9 % (0.0-7.0); HEMOGLOBIN 11.9 g/dl (14.0-18.0); LYMPHOCYTES # 1.4 10^3/ul (0.8-2.9); LYMPHOCYTES % 20.3 % (15.0-51.0); MEAN CORPUSCULAR HEMOGLOBIN 30.7 pg (29.0-33.0); MEAN CORPUSCULAR HGB CONC 33.1 g/dl (32.0-37.0); MEAN PLATELET VOLUME 9.9 fl (7.4-10.4); MONOCYTE # 0.7 10^3/ul (0.3-0.9); MONOCYTES % 10.6 % (0.0-11.0); NEUTROPHIL # 4.4 10^3/ul (1.6-7.5); NEUTROPHILS % 63.7 % (39.0-77.0); PLATELET COUNT 168 10^3/UL (140-415); RED BLOOD COUNT 3.87 10^6/ul (4.70-6.10); RED CELL DISTRIBUTION WIDTH 14.7 % (11.5-14.5)
[2018-11-27 05:10] LABS: WHITE BLOOD COUNT 6.9 10^3/ul (4.8-10.8)
[2018-11-27 05:15] LABS: ADD UMIC YES; UR ASCORBIC ACID NEGATIVE (NEGATIVE); UR BILIRUBIN (Dip) NEGATIVE (NEGATIVE); UR BLOOD (Dip) NEGATIVE (NEGATIVE); UR CLARITY CLEAR (CLEAR); UR COLOR STRAW (YELLOW); UR GLUCOSE (Dip) NEGATIVE (NEGATIVE); UR KETONES (Dip) NEGATIVE (NEGATIVE); UR LEUKOCYTE ESTERASE (Dip) TRACE Leu/ul (NEGATIVE); UR NITRITE (Dip) NEGATIVE (NEGATIVE); UR RBC 0 /HPF (0-5); UR SPECIFIC GRAVITY (Dip) 1.013 (1.003-1.030); UR TOTAL PROTEIN (Dip) NEGATIVE (NEGATIVE); UR UROBILINOGEN (Dip) NEGATIVE (NEGATIVE); UR WBC 7 /HPF (0-5)
[2018-11-27 05:37] LABS: ALANINE AMINOTRANSFERASE 20 IU/L (13-69); ALBUMIN 4.1 g/dl (3.3-4.9); ALBUMIN/GLOBULIN RATIO 1.24; ALKALINE PHOSPHATASE 89 IU/L (42-121); ANION GAP 10 (5-13); ASPARTATE AMINO TRANSFERASE 23 IU/L (15-46); BILIRUBIN,INDIRECT 0.6 mg/dl (0-1.1); BILIRUBIN,TOTAL 0.6 mg/dl (0.2-1.3); BLOOD UREA NITROGEN 40 mg/dl (7-20); CALCIUM 8.7 mg/dl (8.4-10.2); CARBON DIOXIDE 20 mmol/L (21-31); CHLORIDE 115 mmol/L (97-110); CREATININE 1.93 mg/dl (0.61-1.24); GLUCOSE 93 mg/dl (70-220); LIPASE 245 U/L (23-300); POTASSIUM 4.6 mmol/L (3.5-5.1); SODIUM 145 mmol/L (135-144); TOTAL PROTEIN 7.4 g/dl (6.1-8.1)
== END 2018-11-27 07:02 | disposition home or self-care (01) ==
LOC: E/R 03:04
DX: R10.30 Lower abdominal pain, unspecified (principal); R40.2142 Coma scale, eyes open, spontaneous, at arrival to emergency department; R40.2362 Coma scale, best motor response, obeys commands, at arrival to emergency department; R40.2252 Coma scale, best verbal response, oriented, at arrival to emergency department; Z87.891 Personal history of nicotine dependence
CPT/HCPCS: 36415; 74176; 80053; 81001; 83690; 85025; 96374; 96375; 99285-25

== ENCOUNTER 2019-02-16 15:31 | Emergency (ER) | payer OTHER, MEDICAID | END 2019-02-16 16:46 | disposition home or self-care (01) | LOC: E/R 15:31 | DX: M54.5 Low back pain (principal) | CPT/HCPCS: 99282; Z7502 ==

== ENCOUNTER 2019-04-04 23:23 | Emergency (ER) | payer OTHER ==
[2019-04-05] MEDS: ACETAMINOPHEN 325 MG TAB PO (00:42)
== END 2019-04-05 01:35 | disposition home or self-care (01) ==
LOC: E/R 23:23
DX: M54.5 Low back pain (principal); K59.00 Constipation, unspecified
CPT/HCPCS: 99283